=== PATIENT | male | born 1970 | race Caucasian/White ===

== ENCOUNTER 2017-05-17 00:01 | Emergency (ER) | payer OTHER ==
[2017-05-17 00:32] LABS: BASOPHIL % 0.6 % (0-2); PLATELET COUNT 151 x10^3mcL (130-400)
[2017-05-17 00:44] LABS: CALCIUM 8.4 mg/dL (8.5-10.1); CARBON DIOXIDE 30.7 mmol/L (21-32); CHLORIDE SERUM 106 mmol/L (98-107); CREATININE SERUM 0.7 mg/dL (0.7-1.3); GFR1 > 60 mL/min; GLUCOSE SERUM 105 mg/dL (74-106); POTASSIUM SERUM 3.5 mmol/L (3.5-5.1); SODIUM SERUM 143 mmol/L (136-145)
[2017-05-17 00:51] LABS: ALBUMIN 3.5 g/dL (3.4-5.0); ALKALINE PHOSPHATASE 101 U/L (46-116); ALT/SGPT 186 U/L (16-63); AST/SGOT 110 U/L (15-37); BILIRUBIN TOTAL 0.4 mg/dL (0.20-1.00); TOTAL PROTEIN, SERUM 7.4 g/dL (6.4-8.2)
[2017-05-17 02:31] VITALS: BP 135/86
== END 2017-05-17 02:31 | disposition home or self-care (01) ==
LOC: ED 00:01
PROVIDERS: Emergency Medicine
DX: Z04.6 Encounter for general psychiatric examination, requested by authority (principal); I16.0 Hypertensive urgency; B19.20 Unspecified viral hepatitis C without hepatic coma; F32.9 Major depressive disorder, single episode, unspecified; Z86.59 Personal history of other mental and behavioral disorders
CPT/HCPCS: 36415; Q0092

== ENCOUNTER 2017-05-20 21:25 | Emergency (ER) | payer OTHER ==
[2017-05-20 23:30] VITALS: BP 143/95
== END 2017-05-20 23:30 | disposition home or self-care (01) ==
LOC: ED 21:25
DX: I10 Essential (primary) hypertension (principal)

== ENCOUNTER 2017-06-16 10:19 | Inpatient (IN) | payer OTHER ==
[~2017-06-16] VITALS: Ht 165.1 cm; Wt 96.4 kg
[2017-06-16 11:17] LABS: BASOPHIL % 0.4 % (0-2); PLATELET COUNT 132 x10^3mcL (130-400); RED CELL DISTRIBUTION WIDTH 13.8 % (11.5-14.5)
[2017-06-16 11:29] LABS: CALCIUM 8.2 mg/dL (8.5-10.1); CARBON DIOXIDE 27.7 mmol/L (21-32); CHLORIDE SERUM 104 mmol/L (98-107); CREATININE SERUM 0.8 mg/dL (0.7-1.3); GFR1 > 60 mL/min; GLUCOSE SERUM 105 mg/dL (74-106); POTASSIUM SERUM 3.7 mmol/L (3.5-5.1); SODIUM SERUM 139 mmol/L (136-145)
[2017-06-16 11:33] LABS: ALBUMIN 3.5 g/dL (3.4-5.0); ALKALINE PHOSPHATASE 115 U/L (46-116); ALT/SGPT 175 U/L (16-63); AST/SGOT 89 U/L (15-37); BILIRUBIN TOTAL 0.3 mg/dL (0.20-1.00); LIPASE 104 IU/L (73-393); TOTAL PROTEIN, SERUM 7.5 g/dL (6.4-8.2)
[2017-06-16] MEDS ORDERED: HYDROCHLOROTHIA25 MG (12:22)
[2017-06-16] MEDS ORDERED: ZESTRIL20 MG (12:22)
[2017-06-16 13:09] LABS: microscopic required? NO
[2017-06-16 13:12] LABS: T3 TOTAL 1.84 ng/mL
[2017-06-16 13:14] LABS: CHOLESTEROL/HDL RATIO 3.2; MAGNESIUM 1.7 mg/dL (1.8-2.4); PHOSPHOROUS 2.7 mg/dL (2.5-4.9)
[2017-06-16 13:19] LABS: urine erythrocyte NEGATIVE (NEGATIVE)
[2017-06-16 13:22] LABS: FREE T4 1.05 ng/dL (0.76-1.46); FREE THYROXINE INDEX 2.9 ug/dL (1.4-4.5); T4(THYROXINE) 11.2 ug/dL (4.7-13.3)
[2017-06-16 13:27] VITALS: BP 114/81
[2017-06-16 13:34] LABS: AMPHETAMINE QUAL UR NONE DETECTED (NEG <=1000)
[2017-06-16 18:11] VITALS: BP 120/84
[2017-06-16 21:07] VITALS: BP 129/86
[2017-06-17 05:39] VITALS: BP 93/45
[2017-06-17 07:07] LABS: BASOPHIL % 0.5 % (0-2); RED CELL DISTRIBUTION WIDTH 13.7 % (11.5-14.5)
[2017-06-17 07:19] LABS: CALCIUM 8.3 mg/dL (8.5-10.1); CARBON DIOXIDE 29.6 mmol/L (21-32); CHLORIDE SERUM 105 mmol/L (98-107); CREATININE SERUM 0.9 mg/dL (0.7-1.3); GFR1 > 60 mL/min; GLUCOSE SERUM 91 mg/dL (74-106); MAGNESIUM 1.9 mg/dL (1.8-2.4); PHOSPHOROUS 4.1 mg/dL (2.5-4.9); PLATELET COUNT 120 x10^3mcL (130-400); SODIUM SERUM 140 mmol/L (136-145)
[2017-06-17 07:30] VITALS: BP 91/61
[2017-06-17 10:44] VITALS: BP 111/71
[2017-06-17 12:30] VITALS: BP 112/76
[2017-06-17] MEDS ORDERED: MIN1 PO (13:12)
[2017-06-17] MEDS ORDERED: PROZ20 PO (13:13)
[2017-06-17] MEDS ORDERED: SERO100 PO (13:13)
[2017-06-17] MEDS ORDERED: PRI20 PO (13:16)
[2017-06-17 14:06] VITALS: BP 111/71
== END 2017-06-17 15:29 | disposition home or self-care (01) | DRG 243 ==
LOC: ED 10:19 → DU 12:20
PROVIDERS: Emergency Medicine; ADMIT Family Medicine
DX: K21.9 Gastro-esophageal reflux disease without esophagitis (principal); E83.51 Hypocalcemia; F32.9 Major depressive disorder, single episode, unspecified; B19.20 Unspecified viral hepatitis C without hepatic coma; Z82.49 Family history of ischemic heart disease and other diseases of the circulatory system
CPT/HCPCS: 83880; 84439; 90658; J1885; J2405; J3490; J7030; Q0092

== ENCOUNTER 2017-08-21 00:40 | Emergency (ER) | payer OTHER ==
[~2017-08-21] VITALS: Ht 162.6 cm; Wt 68.0 kg
[~2017-08-21 00:40] MED LIST: HYDROCHLOROTHIA25 MG; MIN1 PO; PRI20 PO; PROZ20 PO; SERO100 PO; ZESTRIL20 MG
[2017-08-21 01:12] VITALS: Ht 162.6 cm; Wt 68.0 kg
[2017-08-21 02:16] LABS: BASOPHIL % 0.4 % (0-2); PLATELET COUNT 166 x10^3mcL (130-400); RED CELL DISTRIBUTION WIDTH 13.4 % (11.5-14.5)
[2017-08-21 02:32] LABS: ALBUMIN 3.7 g/dL (3.4-5.0); ALKALINE PHOSPHATASE 91 U/L (46-116); ALT/SGPT 96 U/L (16-63); AST/SGOT 50 U/L (15-37); BILIRUBIN TOTAL 0.38 mg/dL (0.20-1.00); CALCIUM 8.9 mg/dL (8.5-10.1); CARBON DIOXIDE 28.6 mmol/L (21-32); CHLORIDE SERUM 105 mmol/L (98-107); CREATININE SERUM 0.8 mg/dL (0.7-1.3); GFR1 > 60 mL/min; GLUCOSE SERUM 134 mg/dL (74-106); SODIUM SERUM 143 mmol/L (136-145); TOTAL PROTEIN, SERUM 7.6 g/dL (6.4-8.2)
[2017-08-21 02:34] LABS: POTASSIUM SERUM 2.9 mmol/L (3.5-5.1)
[2017-08-21 02:40] LABS: AMPHETAMINE QUAL UR POSITIVE (NEG <=1000)
[2017-08-21 02:55] VITALS: BP 138/65
== END 2017-08-21 02:55 | disposition home or self-care (01) ==
LOC: ED 00:40
PROVIDERS: Emergency Medicine
DX: Z02.79 Encounter for issue of other medical certificate (principal); F15.10 Other stimulant abuse, uncomplicated; E87.6 Hypokalemia; I10 Essential (primary) hypertension; F17.200 Nicotine dependence, unspecified, uncomplicated; B19.20 Unspecified viral hepatitis C without hepatic coma
CPT/HCPCS: 36415; G0480

== ENCOUNTER 2017-08-29 13:33 | Emergency (ER) | payer OTHER ==
[~2017-08-29] VITALS: Ht 165.1 cm; Wt 97.1 kg
[2017-08-29 13:52] VITALS: Ht 165.1 cm; Wt 97.1 kg
[2017-08-29 15:13] LABS: BASOPHIL % 0.3 % (0-2); PLATELET COUNT 145 x10^3mcL (130-400); RED CELL DISTRIBUTION WIDTH 14.1 % (11.5-14.5)
[2017-08-29 15:24] LABS: CALCIUM 8.2 mg/dL (8.5-10.1); CARBON DIOXIDE 29.4 mmol/L (21-32); CHLORIDE SERUM 102 mmol/L (98-107); CREATININE SERUM 0.6 mg/dL (0.7-1.3); GFR1 > 60 mL/min; GLUCOSE SERUM 114 mg/dL (74-106); POTASSIUM SERUM 4.2 mmol/L (3.5-5.1); SODIUM SERUM 139 mmol/L (136-145)
[2017-08-29 15:29] LABS: ALBUMIN 3.7 g/dL (3.4-5.0); ALKALINE PHOSPHATASE 81 U/L (46-116); ALT/SGPT 137 U/L (16-63); AST/SGOT 66 U/L (15-37); BILIRUBIN TOTAL 0.7 mg/dL (0.20-1.00); TOTAL PROTEIN, SERUM 7.7 g/dL (6.4-8.2)
[2017-08-29 18:50] VITALS: BP 157/97
== END 2017-08-29 18:50 | disposition home or self-care (01) ==
LOC: ED 13:33
PROVIDERS: Emergency Medicine
DX: J11.1 Influenza due to unidentified influenza virus with other respiratory manifestations (principal); I10 Essential (primary) hypertension; R10.9 Unspecified abdominal pain; Z88.5 Allergy status to narcotic agent
CPT/HCPCS: 36415; 83880; J1885

== ENCOUNTER 2017-11-20 15:32 | Emergency (ER) | payer OTHER ==
[~2017-11-20] VITALS: Ht 165.1 cm; Wt 95.2 kg
[2017-11-20 15:39] VITALS: BP 167/107; Ht 165.1 cm; Wt 95.2 kg
== END 2017-11-20 18:33 | disposition left against medical advice (07) ==
LOC: ED 15:32
DX: Z53.21 Procedure and treatment not carried out due to patient leaving prior to being seen by health care provider (principal)

== ENCOUNTER 2017-11-30 06:41 | Inpatient (IN) | payer OTHER ==
[~2017-11-30] VITALS: Ht 165.1 cm; Wt 98.9 kg
[2017-11-30 07:43] LABS: BASOPHIL % 0.2 % (0-2); RED CELL DISTRIBUTION WIDTH 13.8 % (11.5-14.5)
[2017-11-30 07:50] LABS: PLATELET COUNT 129 x10^3mcL (130-400)
[2017-11-30 08:06] LABS: CALCIUM 8.4 mg/dL (8.5-10.1); CARBON DIOXIDE 21.6 mmol/L (21-32); CHLORIDE SERUM 104 mmol/L (98-107); CREATININE SERUM 1.7 mg/dL (0.7-1.3); GFR1 46 mL/min; GLUCOSE SERUM 106 mg/dL (74-106); POTASSIUM SERUM 3.7 mmol/L (3.5-5.1); SODIUM SERUM 140 mmol/L (136-145)
[2017-11-30 08:11] LABS: ALBUMIN 3.1 g/dL (3.4-5.0); ALKALINE PHOSPHATASE 49 U/L (46-116); ALT/SGPT 184 U/L (16-63); AST/SGOT 222 U/L (15-37); BILIRUBIN TOTAL 1.2 mg/dL (0.20-1.00); TOTAL PROTEIN, SERUM 6.9 g/dL (6.4-8.2)
[2017-11-30] MEDS ORDERED: NOR10T (08:46)
[2017-11-30] MEDS ORDERED: SEROQUEL300 MG PO (08:46)
[2017-11-30 10:24] LABS: T3 TOTAL 0.55 ng/mL
[2017-11-30 11:03] LABS: MAGNESIUM 1.7 mg/dL (1.8-2.4); PHOSPHOROUS 3.9 mg/dL (2.5-4.9)
[2017-11-30 11:04] VITALS: BP 130/88
[2017-11-30 11:05] LABS: CHOLESTEROL/HDL RATIO 2.4
[2017-11-30 11:07] VITALS: Ht 165.1 cm; Wt 98.9 kg
[2017-11-30 11:12] LABS: FREE T4 1.37 ng/dL (0.76-1.46); FREE THYROXINE INDEX 2.4 ug/dL (1.4-4.5); T4(THYROXINE) 8.1 ug/dL (4.7-13.3)
[2017-11-30 12:38] VITALS: BP 130/88
[2017-11-30 13:10] VITALS: BP 126/88
[2017-11-30 17:06] VITALS: BP 124/76
[2017-11-30 21:55] VITALS: BP 140/90
[2017-12-01 01:37] LABS: UA SPECIFIC GRAVITY >=1.030 (1.005-1.035); microscopic required? YES; urine erythrocyte 3+ (NEGATIVE)
[2017-12-01 02:09] LABS: AMPHETAMINE QUAL UR POSITIVE (NEG <=1000)
[2017-12-01 02:58] LABS: BILIRUBIN DIRECT 0.46 mg/dL (0.0-0.2); BILIRUBIN TOTAL 0.99 mg/dL (0.20-1.00); TOTAL PROTEIN, SERUM 6.4 g/dL (6.4-8.2)
[2017-12-01 03:00] LABS: ALBUMIN 2.5 g/dL (3.4-5.0)
[2017-12-01 06:42] VITALS: BP 149/91
[2017-12-01 07:01] LABS: PLATELET COUNT 112 x10^3mcL (130-400)
[2017-12-01 07:10] LABS: CARBON DIOXIDE 26.2 mmol/L (21-32); CHLORIDE SERUM 109 mmol/L (98-107); CREATININE SERUM 0.9 mg/dL (0.7-1.3); GFR1 > 60 mL/min; GLUCOSE SERUM 119 mg/dL (74-106); MAGNESIUM 2.5 mg/dL (1.8-2.4); PHOSPHOROUS 2.5 mg/dL (2.5-4.9); SODIUM SERUM 145 mmol/L (136-145)
[2017-12-01 09:48] LABS: BAND NEUTROPHIL 49 % (0-10); BASOPHIL 0 % (0-2); MONOCYTE 2 % (0-7); SEGMENTED NEUTROPHILS 33 % (37-75)
[2017-12-01 10:23] VITALS: BP 132/81
[2017-12-01 14:26] VITALS: BP 138/75
[2017-12-01 17:40] VITALS: BP 116/95; BP 136/95
[2017-12-01 18:27] LABS: ALKALINE PHOSPHATASE 45 U/L (46-116); ALT/SGPT 141 U/L (16-63); AST/SGOT 221 U/L (15-37); BILIRUBIN TOTAL 1.1 mg/dL (0.20-1.00); CALCIUM 7.6 mg/dL (8.5-10.1); CARBON DIOXIDE 28.8 mmol/L (21-32); CHLORIDE SERUM 103 mmol/L (98-107); CREATININE SERUM 0.9 mg/dL (0.7-1.3); GFR1 > 60 mL/min; GLUCOSE SERUM 129 mg/dL (74-106); POTASSIUM SERUM 3.1 mmol/L (3.5-5.1); SODIUM SERUM 140 mmol/L (136-145); TOTAL PROTEIN, SERUM 6.3 g/dL (6.4-8.2)
[2017-12-01 18:30] LABS: ALBUMIN 2.4 g/dL (3.4-5.0)
[2017-12-01 20:55] VITALS: BP 138/83
[2017-12-02 05:55] VITALS: BP 135/84
[2017-12-02 06:47] LABS: BASOPHIL % 0.3 % (0-2); RED CELL DISTRIBUTION WIDTH 14.2 % (11.5-14.5)
[2017-12-02 07:01] LABS: CALCIUM 8.1 mg/dL (8.5-10.1); CARBON DIOXIDE 26.1 mmol/L (21-32); CHLORIDE SERUM 107 mmol/L (98-107); CREATININE SERUM 0.7 mg/dL (0.7-1.3); GFR1 > 60 mL/min; GLUCOSE SERUM 97 mg/dL (74-106); MAGNESIUM 1.9 mg/dL (1.8-2.4); PHOSPHOROUS 2.3 mg/dL (2.5-4.9); POTASSIUM SERUM 3.7 mmol/L (3.5-5.1); SODIUM SERUM 142 mmol/L (136-145)
[2017-12-02 07:07] LABS: PLATELET COUNT 128 x10^3mcL (130-400)
[2017-12-02 08:38] VITALS: BP 145/85
[2017-12-02 13:50] VITALS: BP 120/78
[2017-12-02 15:18] LABS: BILIRUBIN DIRECT 0.42 mg/dL (0.0-0.2); BILIRUBIN TOTAL 0.7 mg/dL (0.20-1.00)
[2017-12-02 15:24] LABS: ALBUMIN 2.2 g/dL (3.4-5.0); TOTAL PROTEIN, SERUM 5.9 g/dL (6.4-8.2)
[2017-12-02] MEDS ORDERED: HYDROXYZINE50 M1 PO (16:03)
[2017-12-02] MEDS ORDERED: LEXAPRO10 MG PO (16:04)
[2017-12-02 17:51] VITALS: BP 130/85
[2017-12-02 21:00] VITALS: BP 142/68
[2017-12-02 21:39] VITALS: BP 146/97
[2017-12-03 05:33] VITALS: BP 107/59
[2017-12-03 06:51] LABS: BASOPHIL % 0.4 % (0-2); CALCIUM 8.4 mg/dL (8.5-10.1); CARBON DIOXIDE 25.9 mmol/L (21-32); CHLORIDE SERUM 106 mmol/L (98-107); CREATININE SERUM 0.7 mg/dL (0.7-1.3); GFR1 > 60 mL/min; GLUCOSE SERUM 96 mg/dL (74-106); MAGNESIUM 1.6 mg/dL (1.8-2.4); PHOSPHOROUS 4.3 mg/dL (2.5-4.9); POTASSIUM SERUM 3.1 mmol/L (3.5-5.1); RED CELL DISTRIBUTION WIDTH 13.8 % (11.5-14.5); SODIUM SERUM 140 mmol/L (136-145)
[2017-12-03 07:11] LABS: PLATELET COUNT 122 x10^3mcL (130-400)
[2017-12-03 07:44] LABS: BILIRUBIN DIRECT 0.25 mg/dL (0.0-0.2); BILIRUBIN TOTAL 0.5 mg/dL (0.20-1.00)
[2017-12-03 07:45] LABS: ALBUMIN 2.1 g/dL (3.4-5.0); TOTAL PROTEIN, SERUM 5.7 g/dL (6.4-8.2)
[2017-12-03 08:24] VITALS: BP 131/74
[2017-12-03 13:36] VITALS: BP 160/95
[2017-12-03 17:15] VITALS: BP 142/98
[2017-12-04 05:16] VITALS: BP 116/76
[2017-12-04 07:18] LABS: BASOPHIL % 0.2 % (0-2); PLATELET COUNT 168 x10^3mcL (130-400); RED CELL DISTRIBUTION WIDTH 13.6 % (11.5-14.5)
[2017-12-04 08:03] LABS: ALBUMIN 2.2 g/dL (3.4-5.0); ALKALINE PHOSPHATASE 58 U/L (46-116); ALT/SGPT 101 U/L (16-63); AST/SGOT 78 U/L (15-37); BILIRUBIN DIRECT 0.24 mg/dL (0.0-0.2); BILIRUBIN TOTAL 0.6 mg/dL (0.20-1.00); CALCIUM 8.1 mg/dL (8.5-10.1); CARBON DIOXIDE 28.9 mmol/L (21-32); CHLORIDE SERUM 103 mmol/L (98-107); CREATININE SERUM 0.7 mg/dL (0.7-1.3); GFR1 > 60 mL/min; GLUCOSE SERUM 87 mg/dL (74-106); MAGNESIUM 1.5 mg/dL (1.8-2.4); PHOSPHOROUS 4.4 mg/dL (2.5-4.9); POTASSIUM SERUM 3.6 mmol/L (3.5-5.1); SODIUM SERUM 138 mmol/L (136-145); TOTAL PROTEIN, SERUM 6.2 g/dL (6.4-8.2)
[2017-12-04 09:45] VITALS: BP 124/74
[2017-12-04 13:38] VITALS: BP 112/73
[2017-12-04 17:29] VITALS: BP 143/83
[2017-12-04 21:55] VITALS: BP 149/95
[2017-12-05 05:52] VITALS: BP 152/90
[2017-12-05 06:58] LABS: CALCIUM 8.6 mg/dL (8.5-10.1); CARBON DIOXIDE 27.1 mmol/L (21-32); CHLORIDE SERUM 105 mmol/L (98-107); CREATININE SERUM 0.8 mg/dL (0.7-1.3); GFR1 > 60 mL/min; GLUCOSE SERUM 98 mg/dL (74-106); MAGNESIUM 1.8 mg/dL (1.8-2.4); PHOSPHOROUS 4.6 mg/dL (2.5-4.9); POTASSIUM SERUM 3.9 mmol/L (3.5-5.1); SODIUM SERUM 142 mmol/L (136-145)
[2017-12-05 06:59] LABS: IRON 37 ug/dL (65-170)
[2017-12-05 07:00] LABS: TOTAL IRON BINDING CAPACITY 206 ug/dL (250-450)
[2017-12-05 07:39] LABS: BASOPHIL % 0.3 % (0-2); PLATELET COUNT 176 x10^3mcL (130-400); RED BLOOD CELLS 3.89 M/mm3 (4.52-5.90); RED CELL DISTRIBUTION WIDTH 13.7 % (11.5-14.5)
[2017-12-05 09:46] VITALS: BP 115/73
[2017-12-05 13:19] VITALS: BP 115/73
== END 2017-12-05 16:35 | disposition home or self-care (01) | DRG 137 ==
LOC: EDBD 06:41 → ED 06:41 → DU 08:54 → MU 12-04 08:42
PROVIDERS: Emergency Medicine; Family Medicine
DX: J69.0 Pneumonitis due to inhalation of food and vomit (principal); N17.0 Acute kidney failure with tubular necrosis; G92 Toxic encephalopathy; E43 Unspecified severe protein-calorie malnutrition; E87.2 Acidosis; E83.42 Hypomagnesemia; I24.8 Other forms of acute ischemic heart disease; F33.3 Major depressive disorder, recurrent, severe with psychotic symptoms; T43.592A Poisoning by other antipsychotics and neuroleptics, intentional self-harm, initial encounter; T40.2X2A Poisoning by other opioids, intentional self-harm, initial encounter; K21.9 Gastro-esophageal reflux disease without esophagitis; R09.02 Hypoxemia; F20.0 Paranoid schizophrenia; F43.10 Post-traumatic stress disorder, unspecified; F15.229 Other stimulant dependence with intoxication, unspecified; F17.210 Nicotine dependence, cigarettes, uncomplicated; E66.9 Obesity, unspecified; Z68.38 Body mass index [BMI] 38.0-38.9, adult; Z79.891 Long term (current) use of opiate analgesic; Z56.0 Unemployment, unspecified; Y92.008 Other place in unspecified non-institutional (private) residence as the place of occurrence of the external cause
CPT/HCPCS: 36600; 83880; 84439; 97110-GP; 97116-GP; 97530-GP; G0480; J0132; J1644; J1885; J2310; J2543; J3475; J3480; J3490; J7030; J7620; Q0092; Q0177

== ENCOUNTER 2017-12-29 20:50 | Emergency (ER) | payer OTHER ==
[~2017-12-29] VITALS: Ht 165.1 cm; Wt 98.9 kg
[~2017-12-29 20:50] MED LIST changes: +HYDROXYZINE50 M1 PO; +LEXAPRO10 MG PO; +NOR10T; +SEROQUEL300 MG PO
[2017-12-29 21:18] VITALS: Ht 165.1 cm; Wt 98.9 kg
[2017-12-29 23:19] LABS: CALCIUM 8.4 mg/dL (8.5-10.1); CARBON DIOXIDE 29.7 mmol/L (21-32); CHLORIDE SERUM 106 mmol/L (98-107); CREATININE SERUM 0.7 mg/dL (0.7-1.3); GFR1 > 60 mL/min; GLUCOSE SERUM 88 mg/dL (74-106); POTASSIUM SERUM 3.5 mmol/L (3.5-5.1); SODIUM SERUM 142 mmol/L (136-145)
[2017-12-29 23:25] LABS: ALKALINE PHOSPHATASE 111 U/L (46-116); ALT/SGPT 79 U/L (16-63); AST/SGOT 42 U/L (15-37); BILIRUBIN TOTAL 0.4 mg/dL (0.20-1.00); TOTAL PROTEIN, SERUM 7.3 g/dL (6.4-8.2)
[2017-12-29 23:28] LABS: ALBUMIN 3.3 g/dL (3.4-5.0)
[2017-12-29 23:31] LABS: BASOPHIL % 0.9 % (0-2); PLATELET COUNT 190 x10^3mcL (130-400); RED CELL DISTRIBUTION WIDTH 13.9 % (11.5-14.5)
[2017-12-30 01:31] VITALS: BP 147/93
== END 2017-12-30 01:31 | disposition home or self-care (01) ==
LOC: ED 20:50
PROVIDERS: Emergency Medicine
DX: L03.116 Cellulitis of left lower limb (principal); R60.0 Localized edema; Z88.5 Allergy status to narcotic agent
CPT/HCPCS: 36415; Q0092

== ENCOUNTER 2018-02-09 22:23 | Inpatient (IN) | payer OTHER ==
[~2018-02-09] VITALS: Ht 165.1 cm; Wt 97.5 kg
[2018-02-09 23:10] LABS: BASOPHIL % 0.4 % (0-2); PLATELET COUNT 155 x10^3mcL (130-400); RED CELL DISTRIBUTION WIDTH 13.9 % (11.5-14.5)
[2018-02-09 23:24] LABS: CARBON DIOXIDE 30.1 mmol/L (21-32); CHLORIDE SERUM 106 mmol/L (98-107); GFR1 > 60 mL/min; GLUCOSE SERUM 127 mg/dL (74-106); POTASSIUM SERUM 3.5 mmol/L (3.5-5.1); SODIUM SERUM 145 mmol/L (136-145)
[2018-02-09 23:26] LABS: ALBUMIN 3.6 g/dL (3.4-5.0); ALKALINE PHOSPHATASE 99 U/L (46-116); ALT/SGPT 113 U/L (16-63); AST/SGOT 68 U/L (15-37); BILIRUBIN TOTAL 0.38 mg/dL (0.20-1.00); TOTAL PROTEIN, SERUM 7.4 g/dL (6.4-8.2)
[2018-02-10 01:30] LABS: AMPHETAMINE QUAL UR POSITIVE
[2018-02-10] MEDS ORDERED: SEROQUEL XR200 M1 (03:29)
[2018-02-10 17:30] LABS: microscopic required? YES; urine erythrocyte NEGATIVE (NEGATIVE)
[2018-02-10 18:05] LABS: T3 TOTAL 1.9 ng/mL
[2018-02-10 18:15] LABS: MAGNESIUM 1.8 mg/dL (1.8-2.4); PHOSPHOROUS 4.1 mg/dL (2.5-4.9)
[2018-02-10 18:16] LABS: CHOLESTEROL/HDL RATIO 2.9
[2018-02-10 18:25] LABS: FREE T4 1.04 ng/dL (0.76-1.46); FREE THYROXINE INDEX 2.9 ug/dL (1.4-4.5); T4(THYROXINE) 9.4 ug/dL (4.7-13.3)
[2018-02-10 21:02] VITALS: BP 127/82
[2018-02-10 23:24] VITALS: BP 121/73
[2018-02-11 03:04] VITALS: BP 123/71
[2018-02-11 05:27] LABS: BASOPHIL % 0.5 % (0-2); RED CELL DISTRIBUTION WIDTH 13.8 % (11.5-14.5)
[2018-02-11 05:28] LABS: PLATELET COUNT 124 x10^3mcL (130-400)
[2018-02-11 05:57] LABS: CALCIUM 7.9 mg/dL (8.5-10.1); CARBON DIOXIDE 28.9 mmol/L (21-32); CHLORIDE SERUM 109 mmol/L (98-107); CREATININE SERUM 0.6 mg/dL (0.7-1.3); GFR1 > 60 mL/min; GLUCOSE SERUM 83 mg/dL (74-106); MAGNESIUM 1.6 mg/dL (1.8-2.4); PHOSPHOROUS 4.2 mg/dL (2.5-4.9); POTASSIUM SERUM 3.8 mmol/L (3.5-5.1); SODIUM SERUM 142 mmol/L (136-145)
[2018-02-11 07:29] VITALS: BP 124/89
[2018-02-11 11:25] VITALS: BP 147/98
[2018-02-11 20:42] VITALS: BP 140/84
[2018-02-12 05:35] VITALS: BP 118/74
[2018-02-12 06:42] LABS: BASOPHIL % 0.4 % (0-2); RED CELL DISTRIBUTION WIDTH 13.5 % (11.5-14.5)
[2018-02-12 06:59] LABS: CALCIUM 7.9 mg/dL (8.5-10.1); CARBON DIOXIDE 26.7 mmol/L (21-32); CHLORIDE SERUM 108 mmol/L (98-107); CREATININE SERUM 0.5 mg/dL (0.7-1.3); GFR1 > 60 mL/min; GLUCOSE SERUM 78 mg/dL (74-106); MAGNESIUM 1.8 mg/dL (1.8-2.4); PHOSPHOROUS 3.6 mg/dL (2.5-4.9); POTASSIUM SERUM 3.6 mmol/L (3.5-5.1); SODIUM SERUM 143 mmol/L (136-145)
[2018-02-12 07:51] LABS: PLATELET COUNT 120 x10^3mcL (130-400)
[2018-02-12 08:57] VITALS: BP 136/85
[2018-02-12 17:26] VITALS: BP 141/88
[2018-02-13 08:46] VITALS: BP 142/88
[2018-02-13 12:30] VITALS: BP 98/47
[2018-02-13 19:08] VITALS: BP 137/87
[2018-02-13 21:30] VITALS: BP 145/83
[2018-02-14 05:57] VITALS: BP 132/64
[2018-02-14 07:00] LABS: BASOPHIL % 0.5 % (0-2)
[2018-02-14 07:01] LABS: PLATELET COUNT 124 x10^3mcL (130-400)
[2018-02-14 07:16] LABS: CALCIUM 8.5 mg/dL (8.5-10.1); CARBON DIOXIDE 26.9 mmol/L (21-32); CHLORIDE SERUM 105 mmol/L (98-107); CREATININE SERUM 0.7 mg/dL (0.7-1.3); GFR1 > 60 mL/min; GLUCOSE SERUM 99 mg/dL (74-106); MAGNESIUM 1.8 mg/dL (1.8-2.4); PHOSPHOROUS 3.1 mg/dL (2.5-4.9); POTASSIUM SERUM 3.9 mmol/L (3.5-5.1); SODIUM SERUM 140 mmol/L (136-145)
[2018-02-14 09:42] VITALS: BP 92/62
[2018-02-14 20:41] VITALS: BP 133/73
[2018-02-15 04:23] VITALS: BP 100/54
[2018-02-15 09:00] VITALS: BP 125/72
[2018-02-15 10:00] LABS: CALCIUM 8.6 mg/dL (8.5-10.1); CARBON DIOXIDE 27.6 mmol/L (21-32); CHLORIDE SERUM 108 mmol/L (98-107); CREATININE SERUM 0.7 mg/dL (0.7-1.3); GFR1 > 60 mL/min; GLUCOSE SERUM 124 mg/dL (74-106); MAGNESIUM 1.9 mg/dL (1.8-2.4); PHOSPHOROUS 2.9 mg/dL (2.5-4.9); POTASSIUM SERUM 3.9 mmol/L (3.5-5.1); SODIUM SERUM 141 mmol/L (136-145)
[2018-02-15 10:09] LABS: BASOPHIL % 0.4 % (0-2); RED CELL DISTRIBUTION WIDTH 13.7 % (11.5-14.5)
[2018-02-15 10:14] LABS: PLATELET COUNT 118 x10^3mcL (130-400)
[2018-02-15 13:30] VITALS: BP 128/78
[2018-02-15 18:07] VITALS: BP 134/89
[2018-02-15 20:25] VITALS: BP 123/76
[2018-02-16 05:35] VITALS: BP 102/63
[2018-02-16 07:46] VITALS: BP 123/77
[2018-02-16 14:41] LABS: BASOPHIL % 0.6 % (0-2); PLATELET COUNT 121 x10^3mcL (130-400); RED CELL DISTRIBUTION WIDTH 13.6 % (11.5-14.5)
[2018-02-16 14:46] LABS: CALCIUM 8.5 mg/dL (8.5-10.1); CARBON DIOXIDE 26.9 mmol/L (21-32); CHLORIDE SERUM 108 mmol/L (98-107); CREATININE SERUM 0.6 mg/dL (0.7-1.3); GFR1 > 60 mL/min; GLUCOSE SERUM 101 mg/dL (74-106); MAGNESIUM 1.9 mg/dL (1.8-2.4); SODIUM SERUM 143 mmol/L (136-145)
[2018-02-16 17:00] VITALS: BP 130/81
[2018-02-16 21:51] VITALS: BP 128/63
[2018-02-17 08:30] VITALS: BP 125/70
[2018-02-17 18:35] VITALS: BP 146/91
[2018-02-17 21:39] VITALS: BP 136/89
[2018-02-18 05:30] VITALS: BP 118/84
[2018-02-18 06:41] LABS: BASOPHIL % 0.6 % (0-2); RED CELL DISTRIBUTION WIDTH 13.9 % (11.5-14.5)
[2018-02-18 06:58] LABS: PLATELET COUNT 111 x10^3mcL (130-400)
[2018-02-18 07:11] LABS: CARBON DIOXIDE 24.3 mmol/L (21-32); CHLORIDE SERUM 107 mmol/L (98-107); CREATININE SERUM 0.5 mg/dL (0.7-1.3); GFR1 > 60 mL/min; GLUCOSE SERUM 87 mg/dL (74-106); PHOSPHOROUS 4.2 mg/dL (2.5-4.9); SODIUM SERUM 141 mmol/L (136-145)
[2018-02-18 10:57] VITALS: BP 128/88
== END 2018-02-18 13:13 | disposition home or self-care (01) | DRG 52 ==
LOC: ED 22:23 → DU 02-10 16:31 → IC 02-10 16:31 → MU 02-10 16:31 → IC 02-10 18:04 → MU 02-11 16:12
PROVIDERS: Emergency Medicine; Family Medicine; Family Medicine Sports Medicine; Student in an Organized Health Care Education/Training Program
DX: G92 Toxic encephalopathy (principal); N17.0 Acute kidney failure with tubular necrosis; F31.2 Bipolar disorder, current episode manic severe with psychotic features; R45.851 Suicidal ideations; F43.10 Post-traumatic stress disorder, unspecified; R74.0 Nonspecific elevation of levels of transaminase and lactic acid dehydrogenase [LDH]; K21.9 Gastro-esophageal reflux disease without esophagitis; F41.9 Anxiety disorder, unspecified; Z88.5 Allergy status to narcotic agent; F15.20 Other stimulant dependence, uncomplicated; Z68.35 Body mass index [BMI] 35.0-35.9, adult; E66.3 Overweight; E02 Subclinical iodine-deficiency hypothyroidism; E83.42 Hypomagnesemia; Z91.14 Patient's other noncompliance with medication regimen; B18.2 Chronic viral hepatitis C
CPT/HCPCS: 83880; 84439; G0480; J3475; J7030; Q0092

== ENCOUNTER 2019-01-07 21:32 | Emergency (ER) | payer OTHER ==
[~2019-01-07] VITALS: Ht 165.1 cm; Wt 103.9 kg
[~2019-01-07 21:32] MED LIST changes: +SEROQUEL XR200 M1
[2019-01-07 21:47] VITALS: Ht 165.1 cm; Wt 103.9 kg
[2019-01-08 01:17] LABS: BASOPHIL % 0.6 % (0-2); RED CELL DISTRIBUTION WIDTH 13.8 % (11.5-14.5)
[2019-01-08 01:27] LABS: PLATELET COUNT 128 x10^3mcL (130-400)
[2019-01-08 01:28] LABS: CALCIUM 8.1 mg/dL (8.5-10.1); CARBON DIOXIDE 27.5 mmol/L (21-32); CHLORIDE SERUM 104 mmol/L (98-107); CREATININE SERUM 0.7 mg/dL (0.7-1.3); GFR1 > 60 mL/min; GLUCOSE SERUM 101 mg/dL (74-106); POTASSIUM SERUM 3.4 mmol/L (3.5-5.1); SODIUM SERUM 140 mmol/L (136-145)
[2019-01-08 01:33] LABS: ALBUMIN 3.5 g/dL (3.4-5.0); ALKALINE PHOSPHATASE 93 U/L (46-116); ALT/SGPT 244 U/L (16-63); AST/SGOT 153 U/L (15-37); BILIRUBIN TOTAL 0.56 mg/dL (0.20-1.00); TOTAL PROTEIN, SERUM 7.3 g/dL (6.4-8.2)
[2019-01-08 01:55] VITALS: BP 142/87
== END 2019-01-08 01:55 | disposition home or self-care (01) ==
LOC: ED 21:32
PROVIDERS: Emergency Medicine
DX: H61.23 Impacted cerumen, bilateral (principal); R51 Headache; I10 Essential (primary) hypertension; Z88.5 Allergy status to narcotic agent; Z86.19 Personal history of other infectious and parasitic diseases
CPT/HCPCS: 36415

== ENCOUNTER 2019-03-18 23:12 | Emergency (ER) | payer OTHER ==
[~2019-03-18] VITALS: Ht 165.1 cm; Wt 88.5 kg
[2019-03-18 23:18] VITALS: Ht 165.1 cm; Wt 88.5 kg
[2019-03-19 02:27] LABS: BASOPHIL % 0.3 % (0-2); RED CELL DISTRIBUTION WIDTH 13.9 % (11.5-14.5)
[2019-03-19 02:34] LABS: CALCIUM 8.6 mg/dL (8.5-10.1); CARBON DIOXIDE 26.4 mmol/L (21-32); CHLORIDE SERUM 106 mmol/L (98-107); CREATININE SERUM 0.7 mg/dL (0.7-1.3); GFR1 > 60 mL/min; GLUCOSE SERUM 116 mg/dL (74-106); POTASSIUM SERUM 3.6 mmol/L (3.5-5.1); SODIUM SERUM 142 mmol/L (136-145)
[2019-03-19 02:39] LABS: PLATELET COUNT 127 x10^3mcL (130-400)
[2019-03-19 02:43] LABS: ALKALINE PHOSPHATASE 111 U/L (46-116); ALT/SGPT 116 U/L (16-63); AST/SGOT 72 U/L (15-37); BILIRUBIN TOTAL 0.5 mg/dL (0.20-1.00); LIPASE 80 IU/L (73-393); TOTAL PROTEIN, SERUM 7.1 g/dL (6.4-8.2)
[2019-03-19 02:45] LABS: ALBUMIN 3.2 g/dL (3.4-5.0)
[2019-03-19 06:27] VITALS: BP 124/78
== END 2019-03-19 06:20 | disposition home or self-care (01) ==
LOC: ED 23:12
PROVIDERS: Emergency Medicine
DX: B34.9 Viral infection, unspecified (principal); I10 Essential (primary) hypertension; Z88.6 Allergy status to analgesic agent; Z88.5 Allergy status to narcotic agent
CPT/HCPCS: J1885; J2405; J7030; Q0092

== ENCOUNTER 2019-06-20 19:04 | Emergency (ER) | payer OTHER ==
[~2019-06-20] VITALS: Ht 165.1 cm; Wt 95.7 kg
[2019-06-20 19:13] VITALS: Ht 165.1 cm; Wt 95.7 kg
[2019-06-20 21:00] LABS: BASOPHIL % 0.5 % (0-2); PLATELET COUNT 170 x10^3mcL (130-400); RED CELL DISTRIBUTION WIDTH 14.2 % (11.5-14.5)
[2019-06-20 21:07] LABS: CALCIUM 8.1 mg/dL (8.5-10.1); CARBON DIOXIDE 30.5 mmol/L (21-32); CHLORIDE SERUM 108 mmol/L (98-107); CREATININE SERUM 0.8 mg/dL (0.7-1.3); GFR1 > 60 mL/min; GLUCOSE SERUM 93 mg/dL (74-106); POTASSIUM SERUM 3.7 mmol/L (3.5-5.1); SODIUM SERUM 143 mmol/L (136-145)
[2019-06-20 21:13] LABS: ALBUMIN 3.4 g/dL (3.4-5.0); ALKALINE PHOSPHATASE 116 U/L (46-116); ALT/SGPT 78 U/L (16-63); AST/SGOT 50 U/L (15-37); BILIRUBIN TOTAL 0.4 mg/dL (0.20-1.00); LIPASE 91 IU/L (73-393); TOTAL PROTEIN, SERUM 7.4 g/dL (6.4-8.2)
[2019-06-20 22:37] VITALS: BP 141/93
== END 2019-06-20 22:30 | disposition home or self-care (01) ==
LOC: ED 19:04
PROVIDERS: Student in an Organized Health Care Education/Training Program
DX: I10 Essential (primary) hypertension (principal); Z88.5 Allergy status to narcotic agent
CPT/HCPCS: 36415; Q0092

== ENCOUNTER 2019-10-10 16:36 | Inpatient (IN) | payer OTHER ==
[~2019-10-10] VITALS: Ht 165.1 cm; Wt 111.8 kg
[2019-10-10 20:34] LABS: BASOPHIL % 0.2 % (0-2); PLATELET COUNT 117 x10^3mcL (130-400); RED CELL DISTRIBUTION WIDTH 14.2 % (11.5-14.5)
[2019-10-10 20:58] LABS: CALCIUM 8.1 mg/dL (8.5-10.1); CARBON DIOXIDE 27.2 mmol/L (21-32); CHLORIDE SERUM 105 mmol/L (98-107); CREATININE SERUM 0.8 mg/dL (0.7-1.3); GFR1 > 60 mL/min; GLUCOSE SERUM 108 mg/dL (74-106); POTASSIUM SERUM 3.5 mmol/L (3.5-5.1); SODIUM SERUM 140 mmol/L (136-145)
[2019-10-10 21:03] LABS: AMPHETAMINE QUAL UR NONE DETECTED (See below)
[2019-10-10 21:03] LABS: ALBUMIN 3.3 g/dL (3.4-5.0); ALKALINE PHOSPHATASE 86 U/L (46-116); ALT/SGPT 163 U/L (16-63); AST/SGOT 98 U/L (15-37); BILIRUBIN TOTAL 0.54 mg/dL (0.20-1.00)
[2019-10-11] MEDS ORDERED: PAXIL20 M1 PO (17:14)
[2019-10-11 22:43] VITALS: BP 175/91
[2019-10-11 22:49] VITALS: Ht 165.1 cm; Wt 111.8 kg
[2019-10-12] VITALS (7 sets, daily range): BP systolic 108–146; BP diastolic 74–87
[2019-10-12 07:29] LABS: CALCIUM 7.7 mg/dL (8.5-10.1); CARBON DIOXIDE 25.1 mmol/L (21-32); CHLORIDE SERUM 102 mmol/L (98-107); CREATININE SERUM 0.7 mg/dL (0.7-1.3); GFR1 > 60 mL/min; GLUCOSE SERUM 90 mg/dL (74-106); POTASSIUM SERUM 3.9 mmol/L (3.5-5.1); SODIUM SERUM 137 mmol/L (136-145)
[2019-10-12 08:35] LABS: BASOPHIL % 0.5 % (0-2); RED CELL DISTRIBUTION WIDTH 14.4 % (11.5-14.5)
[2019-10-12 08:49] LABS: PLATELET COUNT 94 x10^3mcL (130-400)
[2019-10-12 12:27] LABS: UA SPECIFIC GRAVITY <=1.005 (1.005-1.035); microscopic required? YES; urine erythrocyte TRACE (NEGATIVE)
[2019-10-13 04:58] VITALS: BP 154/89
[2019-10-13 06:11] LABS: BASOPHIL % 0.6 % (0-2); RED CELL DISTRIBUTION WIDTH 14.4 % (11.5-14.5)
[2019-10-13 06:27] LABS: PLATELET COUNT 103 x10^3mcL (130-400)
[2019-10-13 07:44] LABS: CALCIUM 7.7 mg/dL (8.5-10.1); CARBON DIOXIDE 23.7 mmol/L (21-32); CHLORIDE SERUM 105 mmol/L (98-107); CREATININE SERUM 0.7 mg/dL (0.7-1.3); GFR1 > 60 mL/min; GLUCOSE SERUM 94 mg/dL (74-106); MAGNESIUM 1.7 mg/dL (1.8-2.4); PHOSPHOROUS 3.1 mg/dL (2.5-4.9); SODIUM SERUM 140 mmol/L (136-145)
[2019-10-13 07:56] VITALS: BP 141/88
[2019-10-13] MEDS ORDERED: LEVAQUIN500 M1 PO (11:05)
[2019-10-13] MEDS ORDERED: TAM75 PO (11:05)
[2019-10-13 11:55] VITALS: BP 134/86
[2019-10-13 12:40] VITALS: BP 134/80
== END 2019-10-13 14:07 | disposition home or self-care (01) | DRG 145 ==
LOC: ED 16:36 → MU 10-11 16:41 → DU 10-12 06:32
PROVIDERS: Emergency Medicine; ADMIT Internal Medicine
DX: J20.9 Acute bronchitis, unspecified (principal); F25.0 Schizoaffective disorder, bipolar type; R45.851 Suicidal ideations; K74.69 Other cirrhosis of liver; J06.9 Acute upper respiratory infection, unspecified; B19.20 Unspecified viral hepatitis C without hepatic coma; F15.10 Other stimulant abuse, uncomplicated; Z87.891 Personal history of nicotine dependence; Z68.39 Body mass index [BMI] 39.0-39.9, adult
CPT/HCPCS: 87804; G0378; G0480; J1885; J1956; J2405; J7030; J7050; J7620; Q0092

== ENCOUNTER 2019-11-10 15:17 | Emergency (ER) | payer OTHER ==
[~2019-11-10] VITALS: Ht 162.6 cm; Wt 108.0 kg
[~2019-11-10 15:17] MED LIST changes: +LEVAQUIN500 M1 PO; +PAXIL20 M1 PO; +TAM75 PO
[2019-11-10 15:34] VITALS: Ht 162.6 cm; Wt 108.0 kg
[2019-11-10 20:43] VITALS: BP 118/85
== END 2019-11-10 20:43 | disposition home or self-care (01) ==
LOC: ED 15:17
DX: F41.9 Anxiety disorder, unspecified (principal); I10 Essential (primary) hypertension; K74.60 Unspecified cirrhosis of liver; Z86.19 Personal history of other infectious and parasitic diseases; Z88.5 Allergy status to narcotic agent
CPT/HCPCS: J2060